=== PATIENT | male | born 1965 | race Caucasian/White ===

== ENCOUNTER 2017-10-04 17:36 | Emergency (ER) | payer MEDICARE, MEDICAID ==
[~2017-10-04] VITALS: Ht 185.4 cm; Wt 75.0 kg
[~2017-10-04 17:36] MED LIST: CIPROFLOXACN250 MG PO; CYMBALTA60 MG PO; DIAZEPAM5 MG PO; DILAUDID 2MG2 MG/TA1 PO; FLEXERIL OR; LYRICA50 MG PO; NO HOME MEDS; PERCOCET 10/31 COMBO PO; PERCOCET 5/325M1 TAB OR; TEMAZEPAM30 MG PO
[2017-10-04] MEDS ORDERED: PREDNISONE10 MG PO (18:24)
[2017-10-04 18:35] VITALS: BP 124/89
== END 2017-10-04 18:37 | disposition home or self-care (01) ==
LOC: ED 17:36
DX: M19.011 Primary osteoarthritis, right shoulder (principal); M75.91 Shoulder lesion, unspecified, right shoulder; F17.210 Nicotine dependence, cigarettes, uncomplicated